=== PATIENT | female | born 1985 | race Two or more races ===

== ENCOUNTER 2020-07-30 00:10 | Emergency (ER) | payer MEDICAID ==
[~2020-07-30] VITALS: Ht 170.2 cm; Wt 96.0 kg
[2020-07-30 00:56] VITALS: BP 118/80
== END 2020-07-30 00:56 | disposition home or self-care (01) ==
LOC: ER 00:10
DX: S61.216A Laceration without foreign body of right little finger without damage to nail, initial encounter (principal); J45.909 Unspecified asthma, uncomplicated; W26.0XXA Contact with knife, initial encounter; Y93.89 Activity, other specified; Y92.89 Other specified places as the place of occurrence of the external cause; Y99.8 Other external cause status
CPT/HCPCS: 12001; 99283; Z7610

== ENCOUNTER 2020-08-11 13:31 | Emergency (ER) | payer MEDICAID ==
[~2020-08-11] VITALS: Ht 170.2 cm; Wt 98.0 kg
[2020-08-11 14:02] VITALS: BP 122/67
== END 2020-08-11 15:19 | disposition home or self-care (01) ==
LOC: ER 13:31
DX: Z48.02 Encounter for removal of sutures (principal)
CPT/HCPCS: 99281